=== PATIENT | female | born 1950 ===

== ENCOUNTER 2021-01-20 11:15 | Inpatient (IN) | payer OTHER ==
[~2021-01-20] VITALS: Ht 160 cm; Wt 84.8 kg
[2021-01-20] MEDS ORDERED: JANUMET 50-1,01 EACH PO (15:04)
[2021-01-20] MEDS ORDERED: GABAPE PO (15:05)
[2021-01-20] MEDS ORDERED: ZOLO PO (15:05)
[2021-01-22] MEDS ORDERED: CLONAZEPAM0.5 MG (16:28)
[2021-01-22] MEDS ORDERED: TRAZODONE HCL100 MG (16:29)
[2021-01-22] MEDS ORDERED: ATORVASTATIN CA20 MG (16:29)
[2021-01-22] MEDS ORDERED: GABAPENTIN600 MG (16:29)
[2021-01-22] MEDS ORDERED: LOSARTAN POTASS25 MG (16:29)
[2021-01-22] MEDS ORDERED: RESTORIL30 MG (16:29)
[2021-01-22] MEDS ORDERED: SERTRALINE HCL100 MG (16:29)
[2021-01-22] MEDS ORDERED: ROSUVASTATIN CA20 MG (16:29)
[2021-01-22] MEDS ORDERED: GEMFIBROZIL600 MG (16:29)
[2021-01-22] MEDS ORDERED: AMLODIPINE BESYL5 MG (16:30)
[2021-01-22] MEDS ORDERED: CLOTRIMAZOLE-BE15 G1 (16:30)
[2021-01-22] MEDS ORDERED: PANTOPRAZOLE SO40 MG (16:30)
[2021-01-22] MEDS ORDERED: FAMOTIDINE40 MG (16:30)
[2021-01-22] MEDS ORDERED: KETOCONAZOLE15 GM (16:30)
[2021-01-22] MEDS ORDERED: OLOPATADINE HCL5 ML (16:30)
[2021-01-22] MEDS ORDERED: SYNJARDY XR 101 EACH (16:30)
[2021-01-22] MEDS ORDERED: EYLEA2 MG/0.05 (16:31)
[2021-01-22] MEDS ORDERED: FLONASE16 GM (16:31)
[2021-01-22] MEDS ORDERED: DICLOFENAC SOD100 GM (16:31)
[2021-01-22] MEDS ORDERED: SUCRALFATE1 GM (16:31)
[2021-01-25] MEDS ORDERED: HYOSCYAMINE0.125 M1 SL (11:23)
[2021-01-25] MEDS ORDERED: TRAMADOL HCL50 MG PO (11:24)
[2021-02-08] MEDS ORDERED: ZOLOFT100 MG (09:29)
[2021-02-08] MEDS ORDERED: JANUMET 50-1,01 EACH (09:29)
[2021-02-08] MEDS ORDERED: RESTORIL30 M1 (09:29)
[2021-02-08] MEDS ORDERED: COZAAR25 MG (09:29)
[2021-02-08] MEDS ORDERED: NEURONTIN600 M1 (09:29)
[2021-02-08] MEDS ORDERED: METAMUCIL660 G1 PO (12:17)
== END 2021-01-25 12:50 | disposition home or self-care (01) | DRG 331 ==
LOC: ADM 11:15 → O/R 01-22 06:40 → SURH 01-22 08:10 → CIR.AMB 01-22 11:15 → SURH 01-22 11:15 → EDSTATUS 01-22 11:15 → SURG 01-22 15:47 → SURH 01-22 17:15 → SURG 01-25 12:50
PROVIDERS: ADMIT Surgery; ATTEND Surgery
PROC: 0DN84ZZ Release Small Intestine, Percutaneous Endoscopic Approach (ICD-10-PCS; 2021-01-22)
PROC: 3E0F7SF Introduction of Other Gas into Respiratory Tract, Via Natural or Artificial Opening (ICD-10-PCS; 2021-01-22)
PROC: 4A033R1 Measurement of Arterial Saturation, Peripheral, Percutaneous Approach (ICD-10-PCS; 2021-01-22)
PROC: 4A12X4Z Monitoring of Cardiac Electrical Activity, External Approach (ICD-10-PCS; 2021-01-22)
PROC: 0DQP4ZZ Repair Rectum, Percutaneous Endoscopic Approach (ICD-10-PCS; principal; 2021-01-22 08:10)
DX: K62.3 Rectal prolapse (principal); N99.3 Prolapse of vaginal vault after hysterectomy; K59.02 Outlet dysfunction constipation; E83.42 Hypomagnesemia; E83.39 Other disorders of phosphorus metabolism; K66.0 Peritoneal adhesions (postprocedural) (postinfection)

== ENCOUNTER → 2021-02-08 | Emergency (ER) | payer OTHER ==
[~2021-02-08] VITALS: Ht 160 cm; Wt 79.4 kg
[~2021-02-08] MED LIST: AMLODIPINE BESYL5 MG; ATORVASTATIN CA20 MG; CLONAZEPAM0.5 MG; CLOTRIMAZOLE-BE15 G1; COZAAR25 MG; DICLOFENAC SOD100 GM; EYLEA2 MG/0.05; FAMOTIDINE40 MG; FLONASE16 GM; GABAPE PO; GABAPENTIN600 MG; GEMFIBROZIL600 MG; HYOSCYAMINE0.125 M1 SL; JANUMET 50-1,01 EACH; JANUMET 50-1,01 EACH PO; KETOCONAZOLE15 GM; LOSARTAN POTASS25 MG; METAMUCIL660 G1 PO; NEURONTIN600 M1; OLOPATADINE HCL5 ML; PANTOPRAZOLE SO40 MG; RESTORIL30 M1; RESTORIL30 MG; ROSUVASTATIN CA20 MG; SERTRALINE HCL100 MG; SUCRALFATE1 GM; SYNJARDY XR 101 EACH; TRAMADOL HCL50 MG PO; TRAZODONE HCL100 MG; ZOLO PO; ZOLOFT100 MG
== END | disposition home or self-care (01) ==
LOC: ER 09:06
DX: R19.7 Diarrhea, unspecified (principal)

== ENCOUNTER 2022-04-08 06:41 | Day surgery (SDC) | payer OTHER ==
[~2022-04-08] VITALS: Ht 160 cm; Wt 83.9 kg
[2022-04-08] MEDS ORDERED: TRAM1TAB98 PO (12:51)
[2022-04-08] MEDS ORDERED: INTESTINEX680 M1 PO (12:52)
== END 2022-04-08 17:10 | disposition home or self-care (01) ==
LOC: CIR.AMB 06:41
PROVIDERS: ATTEND Surgery
DX: K64.8 Other hemorrhoids (principal); Z88.5 Allergy status to narcotic agent; R15.9 Full incontinence of feces; K62.3 Rectal prolapse; K59.02 Outlet dysfunction constipation; I10 Essential (primary) hypertension; Z95.0 Presence of cardiac pacemaker; E11.9 Type 2 diabetes mellitus without complications; Z79.84 Long term (current) use of oral hypoglycemic drugs; Z20.822 Contact with and (suspected) exposure to COVID-19